=== PATIENT | male | born 1945 | race Caucasian/White ===

== ENCOUNTER 2016-07-18 11:54 | Day surgery (SDC) | payer MEDICARE ==
[~2016-07-18] VITALS: Ht 177.8 cm; Wt 104.4 kg
[2016-07-18] VITALS (7 sets, daily range): BP systolic 124–158; BP diastolic 78–87; PULSE 55–61; RESP 18–20; TEMP 97.1–97.9; O2SAT 98
[~2016-07-18 11:54] MED LIST: ADVI200C9 PO; AMBI10TA PO; AMLO5TAB96 PO; BENI40TA30 PO; CEREFOLIN PO; CLOB0.055 TOP; COUM5TAB PO; FEXO180 PO; LATA.005%O OU; NEXI40CA PO; TOPR25TA2 PO
[2016-07-18 13:03] LABS: AUTOMATED NEUTROPHIL # 3.6 TH/MM3 (1.8-7.7); BASOPHIL % 0.5 % (0.0-2.0); EOSINOPHIL # 0.5 TH/MM3 (0-0.4); EOSINOPHIL % 8.4 % (0.0-4.0); HEMATOCRIT 43.9 % (39.0-51.0); HEMO FLAGS DIFF FINAL; LYMPH % 17.2 % (9.0-44.0); MEAN CELL VOLUME 100.7 FL (80.0-100.0); MEAN CORPUSCULAR HEMOGLOBIN 34.2 PG (27.0-34.0); MEAN CORPUSCULAR HGB CONC 33.9 % (32.0-36.0); MONO % 14.2 % (0.0-8.0); NEUT % 59.7 % (16.0-70.0); PLATELET COUNT 209 TH/MM3 (150-450); RED BLOOD COUNT 4.36 MIL/MM3 (4.50-5.90); RED CELL DISTRIBUTION WIDTH 14.3 % (11.6-17.2)
[2016-07-18 13:11] LABS: APTT (PATIENT) 26.9 SEC (24.3-30.1); PROTHROMBIN TIME - PATIENT 10.6 SEC (9.8-11.6)
[2016-07-18] MEDS ORDERED: INSULIN HUMAN REGULAR 1,000 UNITS/10 ML VIAL SQ PRN (13:15)
[2016-07-18] MEDS ORDERED: SODIUM CHLORID 0.9% 500 ML IV SCH (13:15)
[2016-07-18] MEDS ORDERED: LACTATED RINGER'S 1000 ML IV SCH (13:15)
[2016-07-18] MEDS ORDERED: METOPROLOL TARTRATE 25 MG TAB PO PRN (13:15)
[2016-07-18 13:16] LABS: BICARBONATE 29.4 MEQ/L (21.0-32.0); POTASSIUM 4.4 MEQ/L (3.5-5.1)
[2016-07-18] MEDS ORDERED: [UNRECOGNIZED DRUG - OTHER] TOPICAL (13:22)
[2016-07-18] MEDS ORDERED: ALLO300T2 PO (13:22)
[2016-07-18] MEDS ORDERED: ZOLP10TA3 PO (13:22)
[2016-07-18] MEDS ORDERED: FURO20TA PO (13:22)
[2016-07-18] MEDS ORDERED: POTA10CA PO (13:22)
[2016-07-18] MEDS ORDERED: TEST1INJ3 IM (13:22)
[2016-07-18] MEDS ORDERED: NITR1SUB3 SL (13:22)
[2016-07-18] MEDS ORDERED: ROSU20 PO (13:22)
[2016-07-18] MEDS ORDERED: LATA0.002 EACH EYE (13:22)
[2016-07-18] MEDS ORDERED: APIX5TAB PO (13:22)
[2016-07-18] MEDS ORDERED: ceFAZolin 2 GM PREMIX 50 ML IV SCH (13:30)
[2016-07-18] MEDS: NS 1000 ML IV SCH (13:30)
[2016-07-18] MEDS ORDERED: VANCOMYCIN 1000 MG/NS 250 ML IV SCH ×2 (13:30)
[2016-07-18] MEDS ORDERED: CHLORHEXIDINE GLUCONATE 2 % 1 PACK (2 CLOTHS) TOP SCH (13:30)
[2016-07-18] MEDS ORDERED: POVIDONE IODINE 5% (ANTISEPSIS KIT) 4 APPLICATIONS EACH NARE SCH (13:30)
[2016-07-18] MEDS ORDERED: MIDAZOLAM HCL 2 MG/2 ML VIAL ONE (14:01)
[2016-07-18] MEDS ORDERED: VANCOMYCIN 500 MG VIAL ONE (14:02)
[2016-07-18] MEDS ORDERED: ceFAZolin INJ 1,000 MG VIAL ONE (14:03)
[2016-07-18] MEDS ORDERED: VANCOMYCIN HCL 1000 MG VIAL ONE (14:03)
[2016-07-18] MEDS ORDERED: LIDOCAINE HCL 2% 50 ML VIAL ONE (14:03)
[2016-07-18] MEDS ORDERED: SODIUM CHLOR 0.9% 250 ML INJ 250 ML ONE (14:03)
[2016-07-18] MEDS ORDERED: PROPOFOL 200 MG/20 ML AMP IV ONE (16:00)
[2016-07-18] MEDS ORDERED: ACETAMINOPHEN 325 MG TAB PO PRN (17:00)
[2016-07-18] MEDS ORDERED: TEMAZEPAM 15 MG CAP PO PRN (17:00)
[2016-07-18] MEDS ORDERED: ZOLPIDEM TARTRATE 10 MG TAB PO PRN (17:00)
[2016-07-18] MEDS: ceFAZolin 2 GM PREMIX 50 ML IV SCH (17:00)
[2016-07-18] MEDS ORDERED: VANCOMYCIN INJ 1,000 MG in SODIUM CHLOR 0.9% 250 ML INJ 250 ML IV ONE (17:00)
--- NOTE | 2016-07-18 17:28 | RADRPT ---
EXAM DATE/TIME: 07/18/2016 17:00 [place] COMPARISON: No previous studies available for comparison. INDICATIONS : Evaluate for pneumothorax, post pacemaker MEDICAL HISTORY : None. SURGICAL HISTORY : None. ENCOUNTER: Initial ACUITY: 1 day PAIN SCORE: 0/10 LOCATION: chest FINDINGS: Lungs are focally clear. No pleural effusion evident. No evidence of pneumothorax. Pacemaker device i s noted with control pack over the left chest. Cardiac contours are satisfactory. Sternotomy wires ar e present. CONCLUSION: No pneumothorax post pacemaker Andrey Brown MD on July 18, 2016 at 17:25 Board Certified Radiologist. This report was verified electronically.
[2016-07-18] MEDS: ACETAMINOPHEN/CODEINE 300 MG/30 MG TAB PO PRN (20:31)
[2016-07-18] MEDS: POTASSIUM CHLORIDE 10 MEQ CAP PO SCH (20:31)
[2016-07-18] MEDS: FUROSEMIDE 20 MG TAB PO SCH (20:51)
[2016-07-18] MEDS ORDERED: LATANOPROST 0.005% OPHT SOLN 2.5 ML BTL EACH EYE SCH (21:00)
[2016-07-19] VITALS (17 sets, daily range): BP systolic 146–148; BP diastolic 73–82; PULSE 60; RESP 18–20; TEMP 97.9–98.2; O2SAT 96–98
[2016-07-19] MEDS: ceFAZolin 2 GM PREMIX 50 ML IV SCH ×2 (00:26→09:16)
[2016-07-19] MEDS: ACETAMINOPHEN/CODEINE 300 MG/30 MG TAB PO PRN (00:26)
[2016-07-19] MEDS ORDERED: ATORVASTATIN 40 MG TAB PO SCH (09:00)
[2016-07-19] MEDS: ALLOPURINOL 300 MG TAB PO SCH ×2 (09:00→09:17)
[2016-07-19] MEDS: FUROSEMIDE 20 MG TAB PO SCH ×2 (09:00→09:16)
[2016-07-19] MEDS: POTASSIUM CHLORIDE 10 MEQ CAP PO SCH ×2 (09:00→09:16)
--- NOTE | 2016-07-19 10:06 | EKG ---
Date Performed: 07/18/2016 Time Performed: 21:48:42 PTAGE: 71 years EKG: Atrial pacing Left axis deviation IV conduction defect Extensive infarct - age undetermined Tall T waves - consider acute ischemia or hyperkalemia Abnormal ECG NO PREVIOUS TRACING DOCTOR: Jose Wise Interpretating Date/Time 07/19/2016 10:04:30
--- NOTE | 2016-07-19 10:16 | EKG ---
Date Performed: 07/18/2016 Time Performed: 17:35:02 PTAGE: 71 years EKG: A-V dissociation Left axis deviation IV conduction defect Extensive infarct - age undetermi mega Abnormal ECG PREVIOUS TRACING : 07/18/2016 13.03 DOCTOR: Jose Wise Interpretating Date/Time 07/19/2016 10:14:57
--- NOTE | 2016-07-19 10:25 | EKG ---
Date Performed: 07/18/2016 Time Performed: 13:03:56 PTAGE: 71 years EKG: Atrial fibrillation with slow ventricular response Prolonged QT interval Lateral T wave nnamdi nges may be due to myocardial ischemia Abnormal ECG PREVIOUS TRACING : 09/02/2008 05.24 DOCTOR: Jose Wise Interpretating Date/Time 07/19/2016 10:21:06
--- NOTE | 2016-07-19 12:43 | MR ---
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 dual chamber MRI compatible pacemaker. ACCESS SITE Left subclavian vein EQUIPMENT USED Generator is [employer] Assurity MRI model [id number] dual chamber pacemaker, serial number [id number]. The right atrial lead is [employer] model [id number], 4-6 cm screw-in MRI compatible atrial lead, serial number [id number]. Right ventricular lead is [employer] model [id number], 58 cm screw-in MRI compatible ventricular lead, serial number [id number]. LEAD TESTING Right atrial lead: P-wave 2.6 millivolts, lead impedance 700 ohms, pacing threshold 1.75 volts at 0.5 milliseconds, pacing at 10 volts, no diaphragmatic stimulation. Right ventricle lead: R-wave 4.5 millivolts, lead impedance 750 ohms, pacing threshold 0.5 volts at 0.5 milliseconds, pacing at 10 volts, no diaphragmatic stimulation. PARAMETERS Mode DDDR lower rate 60, upper rate 130. DIAGNOSES Successful placement of [employer] MRI compatible dual chamber pacemaker. DISPOSITION Mr. Mccollum will be monitored on telemetry with serial EKG's and chest x-rays. He will be scheduled for a wound check and chronic device reprogramming in our office after discharge. We will then initiate long-term pacemaker follow up. MD AMY Walden/NISREEN /3:51 PM /12:35 PM KANDY
[2016-07-19] MEDS: NS 1000 ML IV SCH (13:30)
--- NOTE | 2016-07-19 14:47 | PD.CARD.PN ---
Subjective Subjective Remarks No CP or SOB, feels well Objective Medications Current Medications Medications (Trade) Dose Ordered Sig/Alyssa Route Start Time Stop Time Status Last Admin Lactated Ringer's 1,000 ml @ 30 mls/hr Q24H IV 07/18/16 13:15 (NS 1000 ml Inj) 1,000 ml @ 30 mls/hr Q24H IV 07/18/16 13:30 (Tylenol-Codeine #3) 2 tab Q4H PRN PO 07/18/16 17:00 07/19/16 00:26 (Tylenol) 650 mg Q4H PRN PO 07/18/16 17:00 (Zyloprim) 300 mg DAILY PO 07/19/16 09:00 (Lasix) 20 mg BID PO 07/18/16 21:00 (Xalatan 0.005% Opth Soln) 1 drop HS EACH EYE 07/18/16 21:00 07/18/16 20:31 (KCl) 10 meq BID PO 07/18/16 21:00 07/18/16 20:31 (Ambien) 10 mg HS PRN PO 07/18/16 17:00 07/19/16 00:26 (Lipitor) 40 mg DAILY PO 07/19/16 09:00 Vital Signs / I&O Vital Signs Date Time Temp Pulse Resp B/P Pulse Ox O2 Delivery O2 Flow Rate FiO2 07/19/16 14:00 60 07/19/16 13:00 60 07/19/16 12:00 60 07/19/16 11:37 98.0 60 20 146/82 96 07/19/16 11:00 60 07/19/16 10:00 60 07/19/16 09:00 60 07/19/16 08:00 60 07/19/16 08:00 98.2 60 20 148/80 96 07/19/16 07:00 60 07/19/16 06:00 60 07/19/16 05:00 60 07/19/16 05:00 97.9 60 18 147/73 98 07/19/16 04:00 60 07/19/16 03:00 60 07/19/16 02:28 97 07/19/16 02:00 60 07/19/16 01:00 60 07/19/16 00:00 60 07/19/16 00:00 98.0 60 18 148/73 98 07/18/16 23:00 60 07/18/16 22:00 60 07/18/16 21:00 60 07/18/16 20:00 97.9 61 18 158/87 98 07/18/16 20:00 60 07/18/16 19:00 60 07/18/16 18:00 97.1 60 20 153/84 98 07/18/16 17:51 Room Air I/O 07/18/16 07/18/16 07/18/16 07/19/16 07/19/16 07/19/16 07:00 15:00 23:00 07:00 15:00 23:00 Intake Total 360 ml Output Total 950 ml Balance -590 ml Intake Oral 360 ml Output Urine Total 950 ml Physical Exam GENERAL: SKIN: Warm and dry. HEAD: Normocephalic. EYES: No scleral icterus. No injection or drainage. NECK: Supple, trachea midline. No JVD or lymphadenopathy. CARDIOVASCULAR: Regular rate and rhythm without murmurs, gallops, or rubs. RESPIRATORY: Breath sounds equal bilaterally. No accessory muscle use. GASTROINTESTINAL: Abdomen soft, non-tender, nondistended. MUSCULOSKELETAL: No cyanosis, or edema. Left upper chest wound stable Laboratory Laboratory Tests Test 07/18/16 12:53 White Blood Count 6.0 TH/MM3 Red Blood Count 4.36 MIL/MM3 Hemoglobin 14.9 GM/DL Hematocrit 43.9 % Mean Corpuscular Volume 100.7 FL Mean Corpuscular Hemoglobin 34.2 PG Mean Corpuscular Hemoglobin 33.9 % Concent Red Cell Distribution Width 14.3 % Platelet Count 209 TH/MM3 Mean Platelet Volume 8.9 FL Neutrophils (%) (Auto) 59.7 % Lymphocytes (%) (Auto) 17.2 % Monocytes (%) (Auto) 14.2 % Eosinophils (%) (Auto) 8.4 % Basophils (%) (Auto) 0.5 % Neutrophils # (Auto) 3.6 TH/MM3 Lymphocytes # (Auto) 1.0 TH/MM3 Monocytes # (Auto) 0.8 TH/MM3 Eosinophils # (Auto) 0.5 TH/MM3 Basophils # (Auto) 0.0 TH/MM3 CBC Comment DIFF FINAL Differential Comment Prothrombin Time 10.6 SEC Prothromb Time International 1.0 RATIO Ratio Activated Partial 26.9 SEC Thromboplast Time Sodium Level 139 MEQ/L Potassium Level 4.4 MEQ/L Chloride Level 103 MEQ/L Carbon Dioxide Level 29.4 MEQ/L Anion Gap 7 MEQ/L Blood Urea Nitrogen 13 MG/DL Creatinine 1.26 MG/DL Estimat Glomerular Filtration 56 ML/MIN Rate Random Glucose 119 MG/DL Calcium Level 8.2 MG/DL Imaging Last Impressions Chest X-Ray 07/18/16 0000 Signed Impressions: Service Date/Time: Monday, July 18, 2016 17:00 - CONCLUSION: No pneumothorax post pacemaker Andrey Brown MD Assessment and Plan Problem List: (1) CHB (complete heart block) (2) Pacemaker Assessment and Plan Normal pacer fx. Wound stable. DC home. Restart Eliquis tomorrow AM. Will schedule f/u a outpt. Natty Palm MD Jul 19, 2016 14:47
== END 2016-07-19 15:16 | disposition home or self-care (01) ==
LOC: HDOC 11:54 → HDIC 11:55 → HCIN 18:03 → HDOC 07-19 15:16
PROVIDERS: ATTEND Internal Medicine Interventional Cardiology
DX: I44.1 Atrioventricular block, second degree (principal); R00.1 Bradycardia, unspecified; I48.92 Unspecified atrial flutter; I48.91 Unspecified atrial fibrillation; I10 Essential (primary) hypertension; I34.0 Nonrheumatic mitral (valve) insufficiency; I36.1 Nonrheumatic tricuspid (valve) insufficiency; I25.10 Atherosclerotic heart disease of native coronary artery without angina pectoris; E78.5 Hyperlipidemia, unspecified; R06.00 Dyspnea, unspecified
CPT/HCPCS: 33208; 71010; 80048; 85025; 85610; 85730; 93005; C1785; C1898; J0690; J2250; J3010; J3370; J7050